=== PATIENT | female | born 1975 | race Caucasian/White ===

== ENCOUNTER 2020-05-06 18:16 | Inpatient (IN) | payer BC, OTHER ==
[~2020-05-06] VITALS: Ht 160 cm; Wt 82.5 kg
[2020-05-06] MEDS ORDERED: diphenhydrAMINE 50 MG/ML INJ (BENADRYL) IM STA (18:29)
[2020-05-06] MEDS ORDERED: meTOprolol 5 MG/5 ML (LOPRESSOR) VIAL IV ONE (18:30)
[2020-05-06] MEDS ORDERED: KETOROLAC 60 MG/2 ML VIAL IV ONE (18:30)
--- NOTE | 2020-05-06 18:35 | ED General ---
General Stated Complaint: MIGRIANE,NAUSEA,VOMITING Source of Information: Patient, Old Records, RN/, RN Notes Reviewed History of Present Illness Date Seen by Provider: May 06, 2020 Time Seen by Provider: 18:25 Initial Comments This patient is a 44-year-old female presents to the emergency department with severe headache. Patient states started about 2:00 this afternoon. Patient does have a history of hypertension blood pressure upon arrival 177/94. Patient states she does tickle Mirella for the same. Patient states she does have Hue's hypothyroidism. And takes Synthroid for the same. We'll do medical evaluation treatment is needed Timing/Duration: 4-6 Hours Severity: Moderate Associated Systoms: Denies Symptoms Allergies and Home Medications Allergies Coded Allergies: No Known Drug Allergies (Unverified , 05/06/20) Patient Home Medication List Home Medication List Reviewed: Yes Review of Systems Review of Systems Constitutional: No no symptoms reported, No see HPI, No chills, No diaphoresis, No dizziness, No fever, No malaise, No weakness, No weight gain, No weight loss, No other EENTM: No see HPI, No no symptoms reported, No ear discharge, No hearing loss, No ear pain, No blurred vision, No double vision, No eye pain, No tearing, No vision loss, No dental problems, No hoarseness, No mouth pain, No mouth swelling, No epistaxis, No nose congestion, No nose pain, No throat pain, No throat swelling, No other Respiratory: No no symptoms reported, No see HPI, No cough, No dyspnea on exertion, No hemoptysis, No orthopnea, No phlegm, No short of breath, No stridor, No wheezing, No other Cardiovascular: No no symptoms reported, No see HPI, No chest pain, No edema, No Hx of Intervention, No palpitations, No syncope, No vascular heart diseas, No other Gastrointestinal: No RUQ, No LUQ, No RLQ, No LLQ, No no symptoms reported, No see HPI, No abdominal pain, No constipation, No diarrhea, No dysphagia, No hematemesis, No heartburn, No jaundice, No loss of appetite, No melena, No nausea, No vomiting, No other Musculoskeletal: No no symptoms reported, No see HPI, No back pain, No gout, No joint pain, No joint swelling, No muscle pain, No muscle stiffness, No muscle cramps, No muscle twitching, No muscle weakness, No neck pain, No other Psychiatric/Neurological: Denies No Symptoms Reported; See HPI; Denies Anxiety, Denies Depressed, Denies Emotional Problems; Headache; Denies Numbness, Denies Paresthesia, Denies Pre-Existing Deficit, Denies Seizure, Denies Tingling, Denies Tremors, Denies Weakness, Denies Other All Other Systems Reviewed Negative Unless Noted: Yes Past Zxgoddx-Uyfptx-Vdhflo Hx Patient Social History Recent Foreign Travel: No Contact w/Someone Who Travel: No Physical Exam Vital Signs Vital Signs - First Documented 05/06/20 18:16 Temp 35.9 Pulse 84 Resp 18 B/P (MAP) 187/101 (129) Pulse Ox 99 O2 Delivery Room Air Capillary Refill : Height, Weight, BMI Height: '" Weight: lbs. oz. kg; BMI Method: General Appearance: No Apparent Distress, WD/WN HEENT: PERRL/EOMI, TMs Normal, Normal ENT Inspection, Pharynx Normal Respiratory: Chest Non Tender, Lungs Clear, Normal Breath Sounds, No Accessory Muscle Use, No Respiratory Distress Cardiovascular: Regular Rate, Rhythm, No Edema, No Gallop, No JVD, No Murmur, Normal Peripheral Pulses Gastrointestinal: Normal Bowel Sounds, No Organomegaly, No Pulsatile Mass, Non Tender, Soft Neurologic/Psychiatric: Alert, Oriented x3, No Motor/Sensory Deficits, Normal Mood/Affect Skin: Normal Color, Warm/Dry Progress/Results/Core Measures Suspected Sepsis SIRS Temperature: Pulse: Respiratory Rate: Laboratory Tests 05/06/20 18:36: White Blood Count 9.3 Blood Pressure / Mean: Laboratory Tests 05/06/20 18:36: Creatinine 0.62, Platelet Count 283, Total Bilirubin 0.3 Results/Orders Lab Results Laboratory Tests Test 05/06/20 18:36 Range/Units White Blood Count 9.3 4.3-11.0 10^3/uL Red Blood Count 4.41 4.35-5.85 10^6/uL Hemoglobin 15.4 11.5-16.0 G/DL Hematocrit 44 35-52 % Mean Corpuscular Volume 100 H 80-99 FL Mean Corpuscular Hemoglobin 35 H 25-34 PG Mean Corpuscular Hemoglobin Concent 35 32-36 G/DL Red Cell Distribution Width 13.2 10.0-14.5 % Platelet Count 283 130-400 10^3/uL Mean Platelet Volume 9.7 7.4-10.4 FL Immature Granulocyte % (Auto) 0 % Neutrophils (%) (Auto) 79 H 42-75 % Lymphocytes (%) (Auto) 15 12-44 % Monocytes (%) (Auto) 5 0-12 % Eosinophils (%) (Auto) 0 0-10 % Basophils (%) (Auto) 0 0-10 % Neutrophils # (Auto) 7.4 1.8-7.8 X 10^3 Lymphocytes # (Auto) 1.4 1.0-4.0 X 10^3 Monocytes # (Auto) 0.4 0.0-1.0 X 10^3 Eosinophils # (Auto) 0.0 0.0-0.3 10^3/uL Basophils # (Auto) 0.0 0.0-0.1 10^3/uL Immature Granulocyte # (Auto) 0.0 0.0-0.1 10^3/uL Sodium Level 143 135-145 MMOL/L Potassium Level 3.2 L 3.6-5.0 MMOL/L Chloride Level 103 98-107 MMOL/L Carbon Dioxide Level 23 21-32 MMOL/L Anion Gap 17 H 5-14 MMOL/L Blood Urea Nitrogen 7 7-18 MG/DL Creatinine 0.62 0.60-1.30 MG/DL Estimat Glomerular Filtration Rate > 60 BUN/Creatinine Ratio 11 Glucose Level 146 H 70-105 MG/DL Calcium Level 9.2 8.5-10.1 MG/DL Corrected Calcium 8.8 8.5-10.1 MG/DL Total Bilirubin 0.3 0.1-1.0 MG/DL Aspartate Amino Transf (AST/SGOT) 66 H 5-34 U/L Alanine Aminotransferase (ALT/SGPT) 61 H 0-55 U/L Alkaline Phosphatase 90 40-136 U/L Total Protein 7.6 6.4-8.2 GM/DL Albumin 4.5 3.2-4.5 GM/DL My Orders Orders - CARMELA ABEL MD Cbc With Automated Diff (05/06/20 18:29) Comprehensive Metabolic Panel (05/06/20 18:29) Ed Iv/Invasive Line Start (05/06/20 18:29) Ct Head Wo (05/06/20 18:29) Metoprolol Tartrate Injection (Lopressor (05/06/20 18:30) Ketorolac Injection (Toradol Injection) (05/06/20 18:30) Diphenhydramine Injection (Benadryl Inje (05/06/20 18:29) Ketorolac Injection (Toradol Injection) (05/06/20 18:36) Medications Given in ED Current Medications Medications Dose Ordered Sig/Meghana Route Start Time Stop Time Status Last Admin Dose Admin Ketorolac Tromethamine 15 mg STK-MED ONCE .ROUTE 05/06/20 18:36 05/06/20 18:37 DC 05/06/20 19:05 15 MG Metoprolol Tartrate 5 mg ONCE ONCE IV 05/06/20 18:30 05/06/20 18:33 DC 05/06/20 19:06 5 MG Vital Signs/I&O 05/06/20 18:16 Temp 35.9 Pulse 84 Resp 18 B/P (MAP) 187/101 (129) Pulse Ox 99 O2 Delivery Room Air Capillary Refill : Progress Note : Time: 19:41 Progress Note Patient blood pressure continues to improve blood pressure 151/71. p64 . Patient be discharged home. Take medications as prescribed. May use Tylenol Motrin when necessary is needed. Given a cool dark place and try to see get some sleep. Follow-up with your PCP in 2-3 days. Departure Impression Primary Impression: Headache Additional Impression: Hypertension Disposition: 01 HOME, SELF-CARE Condition: Stable Departure-Patient Inst. Decision time for Depature: 19:43 Referrals: CASTILLO POWER MD (PCP/Family) Primary Care Physician Patient Instructions: High Blood Pressure (DC), Headache, Adult (DC) Add. Discharge Instructions: Take medications as prescribed. May use Tylenol Motrin when necessary is needed. Given a cool dark place and try to see get some sleep. Follow-up with your PCP in 2-3 days. Scripts Rizatriptan Benzoate (Maxalt) 10 Mg Tablet 10 MG PO DAILY PRN for 7 Days, #10 TAB 0 Refills Prov: CARMELA ABEL MD 05/06/20 CARMELA ABEL MD May 06, 2020 18:34
[2020-05-06] MEDS ORDERED: KETOROLAC 15 MG/ML VIAL ONE (18:36)
[2020-05-06 18:41] LABS: BASOPHILS % (AUTO) 0 % (0-10); EOSINOPHILS % (AUTO) 0 % (0-10); HEMATOCRIT 44 % (35-52); HEMOGLOBIN 15.4 G/DL (11.5-16.0); LYMPHOCYTES # (AUTO) 1.4 X 10^3 (1.0-4.0); LYMPHOCYTES % (AUTO) 15 % (12-44); MEAN CORPUSCULAR HEMOGLOBIN 35 PG (25-34); MEAN CORPUSCULAR HGB CONC 35 G/DL (32-36); MEAN CORPUSCULAR VOLUME 100 FL (80-99); MEAN PLATELET VOLUME 9.7 FL (7.4-10.4); MONOCYTES # (AUTO) 0.4 X 10^3 (0.0-1.0); MONOCYTES % (AUTO) 5 % (0-12); NEUTROPHILS # (AUTO) 7.4 X 10^3 (1.8-7.8); NEUTROPHILS % (AUTO) 79 % (42-75); PLATELET COUNT 283 10^3/uL (130-400); WHITE BLOOD COUNT 9.3 10^3/uL (4.3-11.0)
--- NOTE | 2020-05-06 18:55 | Diagnostic Imaging Report ---
PROCEDURE: CT head without contrast. TECHNIQUE: Multiple contiguous axial images were obtained through the brain without the use of intravenous contrast. Auto Exposure Controls were utilized during the CT exam to meet ALARA standards for radiation dose reduction. INDICATION: Headache x5 days The ventricles are normal in size, shape and position. There are no masses or hemorrhages. There are no extra-axial fluid collections. IMPRESSION: Negative CT head Dictated by: Dictated on workstation # [id number]
[2020-05-06 19:01] LABS: ALANINE AMINOTRANSFERASE 61 U/L (0-55); ALBUMIN 4.5 GM/DL (3.2-4.5); ALKALINE PHOSPHATASE 90 U/L (40-136); BILIRUBIN,TOTAL 0.3 MG/DL (0.1-1.0); BUN/CREATININE RATIO 11; CALCIUM 9.2 MG/DL (8.5-10.1); CARBON DIOXIDE 23 MMOL/L (21-32); CHLORIDE 103 MMOL/L (98-107); CREATININE SERUM 0.62 MG/DL (0.60-1.30); GFR ESTIMATED > 60; GLUCOSE 146 MG/DL (70-105); POTASSIUM 3.2 MMOL/L (3.6-5.0); SODIUM 143 MMOL/L (135-145); TOTAL PROTEIN 7.6 GM/DL (6.4-8.2)
--- NOTE | 2020-05-06 19:04 | NUR ---
Pt report from [facility].
--- NOTE | 2020-05-06 19:40 | NUR ---
Spoke with Gaudencio Rojas and updated her progress.
[2020-05-06] MEDS ORDERED: RIZA10TA23 PO (19:44)
[2020-05-06] MEDS ORDERED: LORazepam INJ 2 MG/ML (ATIVAN) VIAL ONE (19:48)
[2020-05-06] MEDS ORDERED: LORazepam INJ 2 MG/ML (ATIVAN) VIAL IVP ONE (20:00)
[2020-05-06 20:25] LABS: BACTERIA,URINE NEGATIVE /HPF; BILIRUBIN,URINE NEGATIVE (NEGATIVE); CLARITY,URINE CLEAR; COLOR,URINE YELLOW; GLUCOSE, URINE (UA) TRACE (NEGATIVE); KETONES,URINE 1+ (NEGATIVE); LEUKOCYTE ESTERASE ,URINE NEGATIVE (NEGATIVE); NITRITE,URINE NEGATIVE (NEGATIVE); PH,URINE 6.5 (5-9); PROTEIN,URINE 2+ (NEGATIVE); SQUAMOUS EPITHELIAL CELL,UR RARE /HPF
[2020-05-06 20:30] LABS: AMPHETAMINE SCREEN, URINE NEGATIVE (NEGATIVE); BARBITURATE SCREEN URINE NEGATIVE (NEGATIVE); BENZODIAZEPINES SCREEN URINE POSITIVE (NEGATIVE); CANNABINOID SCREEN, URINE NEGATIVE (NEGATIVE); COCAINE SCREEN URINE NEGATIVE (NEGATIVE); METHADONE STAT NEGATIVE (NEGATIVE); METHAMPHETAMINE SCREEN URINE S NEGATIVE (NEGATIVE); OPIATE SCREEN URINE NEGATIVE (NEGATIVE); OXYCODONE STAT NEGATIVE (NEGATIVE); PROPOXYPHENE STAT NEGATIVE (NEGATIVE); TRICYCLIC ANTIDEPRESSANTS SCRE NEGATIVE (NEGATIVE)
--- NOTE | 2020-05-06 21:10 | NUR ---
Report to [facility]. Pt going to ICU 11.
[2020-05-06] MEDS ORDERED: morphine INJ 4 MG/ML 1 ML (VIAL/SYRINGE) ONE (23:06)
[2020-05-06] MEDS ORDERED: morphine INJ 4 MG/ML 1 ML (VIAL/SYRINGE) IVP PRN (23:15)
[2020-05-06] MEDS ORDERED: CATHETER FLUSH 10 ML SYR IV PRN (23:15)
[2020-05-06] MEDS ORDERED: D5 NS 1000 ML IV SOLUTION 0 ML IV ONE (23:33)
[2020-05-06] MEDS ORDERED: NS IV 1000 ML 1,000 ML ONE (23:38)
[2020-05-06] MEDS: NS IV 1000 ML 1,000 ML IV SCH (23:43)
[2020-05-06] MEDS ORDERED: KCL 20 MEQ TAB (K-DUR) PO ONE (23:45)
[2020-05-06] MEDS ORDERED: D5 NS 1000 ML IV SOLUTION 1,000 ML IV SCH ×2 (23:45)
[2020-05-07] MEDS ORDERED: morphine INJ 4 MG/ML 1 ML (VIAL/SYRINGE) ONE (00:35)
[2020-05-07] MEDS: morphine INJ 4 MG/ML 1 ML (VIAL/SYRINGE) IVP PRN ×5 (00:42→22:25)
[2020-05-07] MEDS: POTASSIUM CL 10MEQ/50ML IVPB 50 ML IV SCH ×8 (00:50→17:05)
[2020-05-07] MEDS ORDERED: morphine INJ 4 MG/ML 1 ML (VIAL/SYRINGE) IVP PRN ×2 (01:15)
[2020-05-07 01:22] LABS: BASOPHILS % (AUTO) 0 % (0-10); EOSINOPHILS % (AUTO) 0 % (0-10); HEMATOCRIT 44 % (35-52); HEMOGLOBIN 14.9 g/dL (11.5-16.0); LYMPHOCYTES # (AUTO) 1.9 10^3/uL (1.0-4.0); LYMPHOCYTES % (AUTO) 18 % (12-44); MEAN CORPUSCULAR HEMOGLOBIN 34 pg (25-34); MEAN CORPUSCULAR HGB CONC 34 g/dL (32-36); MEAN CORPUSCULAR VOLUME 100 fL (80-99); MONOCYTES # (AUTO) 0.7 10^3/uL (0.0-1.0); MONOCYTES % (AUTO) 7 % (0-12); NEUTROPHILS # (AUTO) 7.6 10^3/uL (1.8-7.8); NEUTROPHILS % (AUTO) 74 % (42-75); PLATELET COUNT 294 10^3/uL (130-400); WHITE BLOOD COUNT 10.3 10^3/uL (4.3-11.0)
[2020-05-07 01:27] LABS: CHLORIDE 103 MMOL/L (98-107); POTASSIUM 3.3 MMOL/L (3.6-5.0); SODIUM 140 MMOL/L (135-145)
[2020-05-07 01:29] LABS: GLUCOSE 121 MG/DL (70-105)
[2020-05-07 01:30] LABS: CARBON DIOXIDE 22 MMOL/L (21-32)
[2020-05-07 01:32] LABS: CREATININE SERUM 0.66 MG/DL (0.60-1.30); GFR ESTIMATED > 60; PHOSPHORUS 2.9 MG/DL (2.3-4.7)
[2020-05-07 01:33] LABS: BUN/CREATININE RATIO 9
[2020-05-07 01:35] LABS: MAGNESIUM 2.1 MG/DL (1.6-2.4)
[2020-05-07] MEDS ORDERED: ACETAMINOPHEN 500 MG TAB (TYLENOL) ONE (02:18)
[2020-05-07] MEDS: KETOROLAC 30 MG/ML VIAL IVP PRN ×4 (02:45→20:39)
[2020-05-07] MEDS: PROMETHAZINE INJ 25 MG/ML (PHENERGAN) AMP IM PRN ×4 (02:45→20:39)
--- NOTE | 2020-05-07 04:41 | Pulmonary Consultation ---
History of Present Illness History of Present Illness Date Seen by Provider: May 07, 2020 Time Seen by Provider: 04:37 Date of Admission Allergies and Home Medications Allergies Coded Allergies: No Known Drug Allergies (Unverified , 05/06/20) Home Medications Rizatriptan Benzoate 10 Mg Tablet, 10 MG PO DAILY PRN Prescribed by: CARMELA ABEL on 05/06/201943 Past Cxxxede-Vayakp-Gnexas Hx Patient Social History Alcohol Use: Occasionally Uses Recreational Drug Use: No Smoking Status: Current Everyday Smoker Type Used: Cigarettes 2nd Hand Smoke Exposure: Yes Recent Foreign Travel: No Contact w/Someone Who Travel: No Recent Infectious Disease Expo: No Physical Abuse: No Sexual Abuse: No Mistreated: No Fear: No Review of Systems Time Seen by Provider: 04:40 Sepsis Event Evaluation Height, Weight, BMI Height: '" Weight: lbs. oz. kg; 29.00 BMI Method: Exam Exam Vital Signs Date Time Temp Pulse Resp B/P (MAP) Pulse Ox O2 Delivery O2 Flow Rate FiO2 05/07/20 02:00 65 149/78 94 Room Air 05/07/20 01:00 64 168/93 97 Room Air 05/07/20 00:00 66 155/87 96 Room Air 05/07/20 00:00 37.3 05/06/20 23:45 59 152/98 98 Room Air 05/06/20 23:30 66 146/115 96 Room Air 05/06/20 23:15 83 152/88 97 Room Air 05/06/20 23:10 36.6 78 168/106 95 Room Air 05/06/20 22:59 73 170/110 99 Room Air 05/06/20 22:55 65 168/106 97 Room Air 05/06/20 20:30 88 157/83 95 Room Air 05/06/20 20:15 90 133/71 93 Room Air 05/06/20 19:30 63 182/84 99 Room Air 05/06/20 19:02 74 99 Room Air 05/06/20 18:16 35.9 84 18 187/101 (129) 99 Room Air I & O 05/07/20 07:00 Intake Total 100 ml Balance 100 ml Height & Weight Height: '" Weight: lbs. oz. kg; 29.00 BMI Method: General Appearance: No Apparent Distress, WD/WN HEENT: PERRL/EOMI, TMs Normal, Normal ENT Inspection, Pharynx Normal Respiratory: Chest Non Tender, Lungs Clear, Normal Breath Sounds, No Accessory Muscle Use, No Respiratory Distress Cardiovascular: Regular Rate, Rhythm, No Edema, No Gallop, No JVD, No Murmur, Normal Peripheral Pulses Capillary Refill: Less Than 3 Seconds Neurologic/Psychiatric: Alert, Oriented x3, No Motor/Sensory Deficits, Normal Mood/Affect Skin: Normal Color, Warm/Dry Results Lab Laboratory Tests 05/06/20 18:36 05/07/20 01:05 Assessment/Plan Assessment/Plan Severe SHEA -Check MRI of Brain -Consider lumbar puncture -Head CT without contrast is negative -No Fever, No leukocytosis -Check urine preg HTN LIBAN BOURGEOIS DO May 07, 2020 04:41
[2020-05-07] MEDS ORDERED: POTASSIUM CL 10MEQ/50ML IVPB 50 ML IV SCH (05:30)
[2020-05-07] MEDS ORDERED: FLU QUADRIvalent (3YOA+) 60 mcg/0.5 ml 2020-21 (AFLURIA) IM ONE (07:00)
--- NOTE | 2020-05-07 07:57 | NUR ---
TIMELINE NOTE BELOW: 05/06/20 @ 2253- THIS RN NOTIFIED EICU OF PATIENT'S EXTREME PAIN FROM MIGRAINE, NUCHAL RIGIDITY, HTN WITH SBP IN 170-180'S, AND PHOTOPHOBIA. NEW ORDER RECEIVED, SEE EMAR AND ORDER HISTORY. 05/06/20 @ 2311- HIS RN NOTIFIED EICU OF PATIENT'S EXTREME PAIN FROM MIGRAINE, NUCHAL RIGIDITY, HTN WITH SBP IN 170-180'S, AND PHOTOPHOBIA. NO NEW ORDERS AT THIS TIME. 05/06/20 @ 2330- THIS RN NOTIFIED EICU OF CONTINUED PAIN DESPITE ORDERED MORPHINE. NEW ORDERS RECEIVED AT THIS TIME, SEE EMAR AND ORDER HX. 05/07/20 @ 0022- THIS RN NOTIFIED EICU OF CONTINUED PAIN DESPITE ORDERED MORPHINE. NEW ORDERS RECEIVED AT THIS TIME, SEE EMAR AND ORDER HX. 05/07/20 @ 0200-THIS RN NOTIFIED EICU OF CONTINUED PAIN DESPITE ORDERED MORPHINE. NEW ORDER RECEIVED AT THIS FOR TYLENOL, SEE ORDER HX AND EMAR. 05/07/20 @ 0215-THIS RN NOTIFIED DR. DALE OF CONTINUED PAIN DESPITE ORDERED MORPHINE AND TYLENOL. NEW ORDERS RECEIVED AT THIS TIME, SEE EMAR AND ORDER HX.
--- NOTE | 2020-05-07 08:04 | Diagnostic Imaging Report ---
Post semi-erect AP chest at 3:43. Indication: Severe onset hypertension There are no prior studies available for comparison. The heart size is within normal limits. The lungs are clear. There is no evidence for failure, pneumonia or for pleural effusion. The mediastinum is not widened. The osseous structures are intact. Impression: There is no evidence for active disease. Dictated by: Dictated on workstation # [id number]
[2020-05-07 08:21] LABS: CHLORIDE 106 MMOL/L (98-107); POTASSIUM 3.6 MMOL/L (3.6-5.0); SODIUM 140 MMOL/L (135-145)
[2020-05-07 08:22] LABS: CALCIUM 8.4 MG/DL (8.5-10.1)
[2020-05-07 08:23] LABS: GLUCOSE 96 MG/DL (70-105)
[2020-05-07 08:25] LABS: CARBON DIOXIDE 24 MMOL/L (21-32)
[2020-05-07 08:27] LABS: CREATININE SERUM 0.69 MG/DL (0.60-1.30); GFR ESTIMATED > 60
[2020-05-07 08:28] LABS: BUN/CREATININE RATIO 9
--- NOTE | 2020-05-07 08:53 | Anesthesia-Procedure Note ---
Procedures/Interventions Procedure Start/Stop/Diagnosis Date of Procedure: May 07, 2020 Start Time: 08:00 Referring Physician: Cookie Preprocedural Diagnosis: new onset seizures Stop Time: 08:30 Lumbar Puncture Discussed Risk,Benefits: Yes (consent signed ) Patient Consents: Yes Position: Lying, L4-5, Right Sterile Technique: Yes Opening Pressure: 19 Fluid Color: clear Spinal Needle Used: Other (25 Pencan) Procedure Notes Lumbar puncture performed by DEBORAH Hogan. Localized area with 1% Lidocaine 2mL at L4-5. X 1 attempt with CSF backflow. Opening pressure 19cm H2O. 4 vials collected with 2mL each, labeled and specimen given to ICU, RN. Pt tolerated well. NIDHI MCKEON CRNA May 07, 2020 08:53
[2020-05-07 09:17] LABS: CSF GLUCOSE 72 MG/DL (50-80)
[2020-05-07] MEDS: NS IV 1000 ML 1,000 ML IV SCH ×2 (09:18→20:38)
[2020-05-07 09:23] LABS: CSF TOTAL PROTEIN 41 MG/DL (15-40)
[2020-05-07 09:38] LABS: APPEARANCE,CSF CLEAR; COLOR,CSF COLORLESS; WHITE BLOOD CELL,CSF 1 CELLS (0-5)
[2020-05-07 09:39] LABS: RED BLOOD CELL,CSF 0 CELLS (0-0)
[2020-05-07 09:41] LABS: CSF TUBE NUMBER 4
[2020-05-07] MEDS ORDERED: GADOBUTROL 15 MMOL/15 ML (GADAVIST) VIAL IV ONE (11:45)
--- NOTE | 2020-05-07 12:10 | History & Physical-Hospitalist ---
History of Present Illness Date Seen 05/07/20 Time Seen by a Provider: 09:00 Attending Physician Katelynn Gary DO PCP Neo Nguyen MD Referring Physician Date of Admission May 06, 2020 at 22:52 Home Medications & Allergies Home Medications Reviewed patient Home Medication Reconciliation performed by pharmacy medication reconciliations flight data technician and/or nursing. Patients Allergies have been reviewed. Allergies Allergies Coded Allergies No Known Drug Allergies (Uzuqelwcda99/19/20) Past Ljazvtg-Suxsmj-Tmdziz Hx Patient Social History Alcohol Use: Occasionally Uses Recreational Drug Use: No Smoking Status: Current Everyday Smoker Type Used: Cigarettes 2nd Hand Smoke Exposure: Yes Recent Foreign Travel: No Contact w/other who traveled: No Recent Infectious Disease Expo: No Physical Exam Physical Exam Vital Signs Vital Signs - First Documented 05/06/20 18:16 Temp 35.9 Pulse 84 Resp 18 B/P (MAP) 187/101 (129) Pulse Ox 99 O2 Delivery Room Air Capillary Refill : Less Than 3 Seconds Height, Weight, BMI Height: '" Weight: lbs. oz. kg; 29.00 BMI Method: Results Results/Procedures Labs Laboratory Tests 05/06/20 18:36 05/07/20 01:05 05/07/20 07:50 05/08/20 03:10 05/08/20 03:16 Patient resulted labs reviewed. Assessment/Plan Admission Diagnosis Assessment: New onset seizure Migraines Plan: MRI Lumbar puncture Clinical Quality Measures DVT/VTE Risk/Contraindication: Risk Factor Score Per Nursin RFS Level Per Nursing on Admit: 2=Moderate Other: MRI THIS MORNING 05/07/20 WITH CONTRAST, WILL REASSESS PROPHYLACTIC DVT MEDICATION AT THIS TIME KATELYNN GARY DO May 07, 2020 12:10
--- NOTE | 2020-05-07 12:32 | History & Physical-Hospitalist ---
VILMA,RADHA MED STUDENT 05/07/20 1232: History of Present Illness HPI/Chief Complaint CC: Headache HPI: Celia Joiner is a 44-year-old female with hx of HTN, migraines and Hashimotos who presented to the ER with severe headache onset about 1400 yes terday (05/06/20). Patient states pain started suddenly after coughing while working at home. She subsequently tried laying down and taking her previously perscribed rizatriptan with no effect, prompting her arrival at the ER. Patient's BP on arrival was 177/94. She notes she had a previous episode a few days prior which was controlled with her triptan. On arrival, patient was given Lopressor and Toridol and sent for Head CT which was negative. Patient's pressure sortly after improved to 151/71, with no fever or leukocytosis noted she was discharged home to f/u outpatient. While discussing discharge instructions patient had seizure-like activity and was given 2 of Ativan, subsequently admitted for new-onset seizure like activity. Dr. Gabriel was consulted and recommends LP and MRI which are currently ordered. Patient is now laying in the dark in her room with reduced headache rated 4/10 compared to her initial 10+/10. She denies any other acute complaints including CP, tachycardia, SOB, wheezing, abdominal pain, diarrhea, constipation. She notes she had visual disturbances over the course of her current episode which is consistent with her previous episodes of ocular migraines though they have never been this bad and she hasn't had an episode since about 2014 (when she was perscribed her Rizatriptan). Patient sees a neurologist at where she had her last MRI in 2013. Source: patient, other (ED note) Exam Limitations: no limitations Date Seen 05/07/20 Time Seen by a Provider: 08:25 Attending Physician Katelynn Dale Pankaj K MD Referring Physician Date of Admission May 06, 2020 at 22:52 Home Medications & Allergies Home Medications Reviewed patient Home Medication Reconciliation performed by pharmacy medication reconciliations wireless cellular technician and/or nursing. Patients Allergies have been reviewed. 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[employer]) Alcohol Use: Occasionally Uses Recreational Drug Use: No Smoking Status: Current Everyday Smoker ("less than 1ppd") Type Used: Cigarettes 2nd Hand Smoke Exposure: Yes Recent Foreign Travel: No Contact w/other who traveled: No Recent Infectious Disease Expo: No Past Medical History Cardiac: Hypertension Neurological: Headaches /Migraines Gastrointestinal: Diverticulosis Endocrine: Hypothyroidsim (hashimotos thyroiditis) Review of Systems Constitutional: No chills, No fever EENTM: blurred vision (visual disturbances during epsiode, currently resolved); No hearing loss Respiratory: No dyspnea on exertion, No orthopnea Cardiovascular: No chest pain, No edema Gastrointestinal: No abdominal pain, No constipation, No diarrhea, No jaundice Genitourinary: No dysuria, No hematuria Musculoskeletal: No joint pain, No muscle pain Skin: No pruritus, No rash Psychiatric/Neurological: Denies Anxiety; Headache, Seizure (new onset, currently resolved) Physical Exam Physical Exam Vital Signs Vital Signs - First Documented 05/06/20 18:16 Temp 35.9 Pulse 84 Resp 18 B/P (MAP) 187/101 (129) Pulse Ox 99 O2 Delivery Room Air Capillary Refill : Less Than 3 Seconds Height, Weight, BMI Height: '" Weight: lbs. oz. kg; 29.00 BMI Method: General Appearance: WD/WN, Mild Distress HEENT: Photophobia Neck: Normal Inspection, Non Tender Respiratory: Chest Non Tender, Lungs Clear, No Accessory Muscle Use, No Respiratory Distress Cardiovascular: Regular Rate, Rhythm, No Edema, No Murmur, Normal Peripheral Pulses Gastrointestinal: No Organomegaly, No Pulsatile Mass, Non Tender Extremity: Normal Capillary Refill, Normal Inspection, No Calf Tenderness, No Pedal Edema Neurologic/Psychiatric: Alert, Oriented x3, Normal Mood/Affect Skin: Normal Color; No Ecchymosis, No Jaundice, No Petechia, No Rash Results Results/Procedures Labs Laboratory Tests 05/06/20 18:36 05/07/20 01:05 05/07/20 07:50 Patient resulted labs reviewed. Assessment/Plan Admission Diagnosis New onset seizure -MRI -Lumbar puncture Chronic migraines ~continue home medication as needed Clinical Quality Measures DVT/VTE Risk/Contraindication: Risk Factor Score Per Nursin RFS Level Per Nursing on Admit: 2=Moderate Other: MRI THIS MORNING 05/07/20 WITH CONTRAST, WILL REASSESS PROPHYLACTIC DVT MEDICATION AT THIS TIME KATELYNN DALE DO 05/08/20 0616: History of Present Illness HPI/Chief Complaint CC: New onset seizure after a migraine HPI: This is a 44yoWF clinic pt of Dr. Nguyen who presented to [facility] with a severe migraine with a history of migraines and upon DC planning she had a new onset seizure. She was admitted, CT scan was normal, labs normal, UDS negative, and pt did have a lumbar puncture and all of that was within normal limits. MRI will be scheduled today. 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[employer]) Smoking Status: Current Everyday Smoker ("less than 1ppd") Review of Systems Constitutional: see HPI Physical Exam Physical Exam General Appearance: No Apparent Distress, Chronically ill Respiratory: Lungs Clear Cardiovascular: Regular Rate, Rhythm Assessment/Plan Admission Diagnosis ICU LP MRI Monitor closely Admission Status: Inpatient Order (span 2 midnights) Reason for Inpatient Admission: new onset seziure Supervisory-Addendum Brief Verification & Attestation Participated in pt care: history, MDM, physical Personally performed: exam, history, MDM, supervision of care Care discussed with: Medical Student Procedures: n/a Results interpretation: Verified all documentation Verification and Attestation of Medical Student E/M Service A medical student performed and documented this service in my presence. I reviewed and verified all information documented by the medical student and made modifications to such information, when appropriate. I personally performed the physical exam and medical decision making. Katelynn Dale, May 08, 2020,06:16 RADHA ESPARZA MED STUDENT May 07, 2020 12:32 KATELYNN DALE DO May 08, 2020 06:16
--- NOTE | 2020-05-07 12:44 | Diagnostic Imaging Report ---
EXAM: MRI BRAIN PITUITARY W/WO CON INDICATION: Migraine headache. COMPARISON: CT head without contrast 05/06/2020. FINDINGS: Examination is limited by motion. There is subtle cortical T2 hyperintensity in the posterior parasagittal frontal lobes and parasagittal parietal lobe. No associated enhancement or restricted water diffusion. No signal to suggest intracranial hemorrhage. Dedicated sequences to the level of the sella demonstrate normal morphology with no suspicious mass or enhancement. The infundibulum is midline. Normal morphology of the major midline structures, posterior fossa and cerebellar pontine angle. No hydrocephalus or extra-axial fluid collections. Normal intracranial flow voids. The orbits are unremarkable. The paranasal sinuses and mastoids are clear. Normal bone marrow signal. IMPRESSION: 1. Examination limited by motion, particularly affecting the dedicated sella sequences. 2. Normal morphology of the sella with no suspicious mass or enhancement. 3. Subtle cortical T2 hyperintensity within the parasagittal parietal lobes and posterior frontal lobes is indeterminate. There is no associated enhancement or restricted water diffusion. No evidence of intracranial hemorrhage. Findings could include encephalitis including infectious or autoimmune. Posterior reversal encephalopathy syndrome typically involves the subcortical white matter as well but could have this presentation. Vasculitis could have a similar presentation. Status epilepticus and hypoglycemia could also be considered. Findings were discussed with Dr. Berhane Gabriel at 12:38 p.m. on 05/07/2020. Dictated by: Dictated on workstation # [id number]
[2020-05-07] MEDS: ACETAMINOPHEN 500 MG TAB (TYLENOL) PO PRN (13:30)
[2020-05-07] MEDS: ACYCLOVIR INJECTION 800 MG in NS (IVPB) 250 ML IV SCH ×2 (14:38→22:19)
[2020-05-07] MEDS ORDERED: ALPR0.5T7 PO (15:43)
[2020-05-07] MEDS ORDERED: PANT40TA52 PO (15:43)
[2020-05-07] MEDS ORDERED: IBUP-2473 PO (15:43)
[2020-05-07] MEDS ORDERED: ACET-2267 PO (15:43)
[2020-05-07] MEDS ORDERED: ESTR42.511 VG (15:43)
[2020-05-07] MEDS ORDERED: LOSA50TA63 PO (15:43)
[2020-05-07] MEDS ORDERED: MAGN296S71 PO (15:43)
[2020-05-07] MEDS ORDERED: VENL75CA93 PO (15:43)
[2020-05-07] MEDS ORDERED: LEVO75TA6 PO (15:43)
--- NOTE | 2020-05-07 15:46 | NUR ---
SPOKE WITH THE PT ( I CALLED HER ROOM PHONE), WENT THRU THE EXT MED HISTORY AND CALLED [facility] TO COMPLETE THE MED REC PT THOUGHT SHE HAD FILLED A MIGRAINE MEDICATIONS (IMITREX, MAXALT) AT [facility], HOWEVER WHEN I SPOKE TO A DENTURE PACKER AT [facility] I WAS TOLD THERE WERE NO MIGRAINE MEDICATIONS ON FILE OTC MEDS: IBUPROFEN TYLENOL
[2020-05-08] MEDS: NS IV 1000 ML 1,000 ML IV SCH ×2 (02:18→13:28)
[2020-05-08 03:58] LABS: BASOPHILS % (AUTO) 0 % (0-10); EOSINOPHILS # (AUTO) 0.2 10^3/uL (0.0-0.3); EOSINOPHILS % (AUTO) 3 % (0-10); HEMATOCRIT 37 % (35-52); HEMOGLOBIN 12.3 g/dL (11.5-16.0); LYMPHOCYTES # (AUTO) 2.3 10^3/uL (1.0-4.0); LYMPHOCYTES % (AUTO) 31 % (12-44); MEAN CORPUSCULAR HEMOGLOBIN 35 pg (25-34); MEAN CORPUSCULAR HGB CONC 33 g/dL (32-36); MEAN CORPUSCULAR VOLUME 105 fL (80-99); MEAN PLATELET VOLUME 10.6 fL (9.0-12.2); MONOCYTES # (AUTO) 0.4 10^3/uL (0.0-1.0); MONOCYTES % (AUTO) 6 % (0-12); NEUTROPHILS # (AUTO) 4.5 10^3/uL (1.8-7.8); NEUTROPHILS % (AUTO) 61 % (42-75); PLATELET COUNT 233 10^3/uL (130-400); WHITE BLOOD COUNT 7.4 10^3/uL (4.3-11.0)
[2020-05-08 04:09] LABS: CHLORIDE 110 MMOL/L (98-107); POTASSIUM 3.5 MMOL/L (3.6-5.0); SODIUM 140 MMOL/L (135-145)
[2020-05-08 04:10] LABS: CALCIUM 7.7 MG/DL (8.5-10.1)
[2020-05-08 04:11] LABS: GLUCOSE 111 MG/DL (70-105)
[2020-05-08 04:12] LABS: CARBON DIOXIDE 20 MMOL/L (21-32)
[2020-05-08 04:14] LABS: PHOSPHORUS 2.9 MG/DL (2.3-4.7)
[2020-05-08 04:15] LABS: CREATININE SERUM 0.74 MG/DL (0.60-1.30); GFR ESTIMATED > 60
[2020-05-08 04:16] LABS: BUN/CREATININE RATIO 12
[2020-05-08 04:17] LABS: MAGNESIUM 1.9 MG/DL (1.6-2.4)
[2020-05-08] MEDS: ACETAMINOPHEN 500 MG TAB (TYLENOL) PO PRN ×2 (04:43→15:55)
[2020-05-08] MEDS: ACYCLOVIR INJECTION 800 MG in NS (IVPB) 250 ML IV SCH ×3 (05:15→22:40)
--- NOTE | 2020-05-08 06:49 | Pulmonary Progress Note ---
Subjective Time Seen by a Provider: 06:43 Subjective/Events-last exam Pt still has SHEA . No seizures through the night. Sepsis Event Evaluation Height, Weight, BMI Height: '" Weight: lbs. oz. kg; 29.00 BMI Method: Exam Exam Vital Signs Date Time Temp Pulse Resp B/P (MAP) Pulse Ox O2 Delivery O2 Flow Rate FiO2 05/08/20 05:00 65 146/98 95 Room Air 05/08/20 04:00 97 Room Air 05/08/20 04:00 36.2 05/08/20 04:00 63 157/90 95 Room Air 05/08/20 03:00 62 138/85 97 Room Air 05/08/20 02:00 72 131/79 94 Room Air 05/08/20 01:00 65 05/08/20 01:00 65 110/74 96 Room Air 05/08/20 00:00 36.6 05/08/20 00:00 81 109/60 95 Room Air 05/08/20 00:00 97 Room Air 05/07/20 23:00 73 130/79 94 Room Air 05/07/20 22:00 74 129/80 95 Room Air 05/07/20 21:00 75 129/79 95 Room Air 05/07/20 20:00 95 Room Air 05/07/20 20:00 75 137/79 94 Room Air 05/07/20 20:00 36.2 05/07/20 19:23 36.7 05/07/20 19:00 84 127/74 94 Room Air 05/07/20 19:00 84 05/07/20 16:00 37.5 05/07/20 16:00 96 Room Air 05/07/20 13:00 96 96 Room Air 05/07/20 12:49 63 05/07/20 12:00 97 Room Air 05/07/20 10:00 146/89 93 Room Air 05/07/20 09:00 68 140/77 93 Room Air 05/07/20 08:00 67 133/98 97 Room Air 05/07/20 07:45 96 Room Air 05/07/20 07:37 36.5 05/07/20 07:00 68 144/94 96 Room Air 05/07/20 06:48 67 I & O 05/08/20 07:00 Intake Total 2650 ml Output Total 1000 ml Balance 1650 ml Height & Weight Height: '" Weight: lbs. oz. kg; 29.00 BMI Method: General Appearance: No Apparent Distress, Chronically ill HEENT: Photophobia Neck: Normal Inspection, Non Tender Respiratory: Lungs Clear Cardiovascular: Regular Rate, Rhythm Capillary Refill: Less Than 3 Seconds Extremity: Normal Capillary Refill, Normal Inspection, No Calf Tenderness, No Pedal Edema Neurologic/Psychiatric: Alert, Oriented x3, Normal Mood/Affect Skin: Normal Color; No Ecchymosis, No Jaundice, No Petechia, No Rash Results Lab Laboratory Tests 05/06/20 18:36 05/07/20 01:05 05/07/20 07:50 05/08/20 03:10 05/08/20 03:16 Assessment/Plan Assessment/Plan Severe SHEA with new onset seizure. -s/p MRI of Brain -s/p lumbar puncture -Head CT without contrast is negative -No Fever, No leukocytosis -HSV abx - Pending -Tick panel pending HTN- stable Pt has been stable. Will transfer to 4th floor. LIBAN BOURGEOIS DO May 08, 2020 06:49
--- NOTE | 2020-05-08 07:31 | Diagnostic Imaging Report ---
INDICATION: Hypertension. Headache Upright chest shows normal heart size and vascularity. The lungs are clear. There is no effusion or pneumothorax. IMPRESSION: Normal chest with no change from 05/07/2020. Dictated by: Dictated on workstation # [id number]
[2020-05-08] MEDS: POTASSIUM CL 10MEQ/50ML IVPB 50 ML IV SCH ×4 (08:30→11:51)
[2020-05-08] MEDS: PROMETHAZINE INJ 25 MG/ML (PHENERGAN) AMP IM PRN (08:32)
[2020-05-08] MEDS: KETOROLAC 30 MG/ML VIAL IVP PRN ×2 (08:33→20:38)
--- NOTE | 2020-05-08 09:15 | NUR ---
REPORT RECEIVED FROM ASH FERREIRA RN
--- NOTE | 2020-05-08 09:36 | NUR ---
PT ARRIVED TO FLOOR, INTRODUCED TO CARE TEAM AND SURROUNDINGS. CALL LIGHT IN REACH, PT DENIES NEEDS AT THIS TIME, DOOR CLOSED WILL CONTINUE TO MONITOR
[2020-05-08] MEDS: LEVETIRACETAM INJECTION 500 MG in NS (IVPB) 100 ML IV SCH ×2 (12:33→20:38)
--- NOTE | 2020-05-08 13:23 | Progress Note - Hospitalist ---
RADHA ESPARZA MED STUDENT 05/08/20 1323: Subjective HPI/CC On Admission Date Seen by Provider: May 08, 2020 Time Seen by Provider: 08:05 ER note-CC: New onset seizure after a migraine HPI: This is a 44yoWF clinic pt of Dr. Nguyen who presented to [facility] ER with a severe migraine with a history of migraines and upon DC planning she had a new onset seizure. She was admitted, CT scan was normal, labs normal, UDS negative, and pt did have a lumbar puncture and all of that was within normal li mits. MRI will be scheduled today. Subjective/Events-last exam Patient reports no significant improvement of headache or neck pain but otherwise no complaints or changes. Denies any known seizures overnight. Objective Exam Vital Signs Vital Signs Date Time Temp Pulse Resp B/P (MAP) Pulse Ox O2 Delivery O2 Flow Rate FiO2 05/08/20 10:31 Room Air 05/08/20 09:37 36.1 71 145/89 97 05/06/20 18:16 18 Capillary Refill : Less Than 3 Seconds General Appearance: WD/WN, Mild Distress HEENT: Photophobia Neck: Normal Inspection; No Lymphadenopathy (L), No Lymphadenopathy (R); Tender Lateral (L side, stated to be chronic ) Respiratory: Chest Non Tender, Lungs Clear, Normal Breath Sounds, No Accessory Muscle Use, No Respiratory Distress Cardiovascular: Regular Rate, Rhythm, No Edema, No Murmur, Normal Peripheral Pulses Gastrointestinal: No Pulsatile Mass, Non Tender Extremity: Normal Inspection, Non Tender, No Calf Tenderness, No Pedal Edema Neurologic/Psychiatric: Alert, Oriented x3, Normal Mood/Affect Skin: Normal Color, Warm/Dry Results/Procedures Lab Laboratory Tests 05/08/20 03:10 05/08/20 03:16 Patient resulted labs reviewed. Assessment/Plan Assessment and Plan Assess & Plan/Chief Complaint New onset seizure/consider meningitis -improving -MRI: inconclusive -Lumbar puncture: negative culture -started on Acyclovir and Keppra Headache -continue home medication as needed Debility -consult PT/OT Chronic -HTN Clinical Quality Measures DVT/VTE Risk/Contraindication: Risk Factor Score Per Nursin RFS Level Per Nursing on Admit: 2=Moderate Other: MRI THIS MORNING 05/07/20 WITH CONTRAST, WILL REASSESS PROPHYLACTIC DVT MEDICATION AT THIS TIME KATELYNN DALE DO 05/08/202112: Subjective Subjective/Events-last exam No further seizures Keppra will be added 500 mg BID to lower the chance of a recurrent seizure Acyclovir maintained HSV on the CSF fluid, pending at this current time MRI was actually done at [facility] in [place] and not at as originally told, so I will try to log in there and get that done Will initiate PT to get her out of bed Tick-born illness panel pending Will work to get her home tomorrow Review of Systems General: Fatigue Neurological: Weakness Objective Exam General Appearance: No Apparent Distress, WD/WN, Chronically ill Respiratory: Chest Non Tender, Lungs Clear, Normal Breath Sounds, No Accessory Muscle Use, No Respiratory Distress Cardiovascular: Regular Rate, Rhythm, No Edema, No Gallop, No JVD, No Murmur, Normal Peripheral Pulses Neurologic/Psychiatric: Alert, Oriented x3, No Motor/Sensory Deficits, Normal Mood/Affect Assessment/Plan Assessment and Plan Assess & Plan/Chief Complaint Restart home meds and ordered PT OT to ambulate and started Keppra Supervisory-Addendum Brief Verification & Attestation Participated in pt care: history, MDM, physical Personally performed: exam, history, MDM, supervision of care Care discussed with: Medical Student Procedures: n/a Results interpretation: Verified all documentation Verification and Attestation of Medical Student E/M Service A medical student performed and documented this service in my presence. I reviewed and verified all information documented by the medical student and made modifications to such information, when appropriate. I personally performed the physical exam and medical decision making. Katelynn Dale, May 08, 2020,21:12 RADHA ESPARZA MED STUDENT May 08, 2020 13:23 KATELYNN DALE DO May 08, 2020 21:13
--- NOTE | 2020-05-08 13:51 | Physical Therapy Evaluation ---
PT Evaluation-General Medical Diagnosis Admission Date May 06, 2020 at 22:52 Medical Diagnosis: weakness Onset Date: May 06, 2020 Therapy Diagnosis Therapy Diagnosis: Debility Precautions Precautions/Isolations: Contact Isolation, Droplet Isolation, Seizure, Fall Prevention, Standard Precautions Weight Bear Status Full Weight Bearing Full Weight Bearing Referral Physician: Cookie Reason for Referral: Evaluation/Treatment Medical History Pertinent Medical History: Diverticulitis, HTN, Hypothroidism Additional Medical History Cardiac: Hypertension Neurological: Headaches /Migraines Gastrointestinal: Diverticulosis Endocrine: Hypothyroidsim (hashimotos thyroiditis) Reviewed History: Yes Social History Home: Single Level Current Living Status: Significant Other (+15yo daughter) Entry Into Home: Stairs Without Railing PT Steps Into Home: 2 PT Steps Inside Home: 0 Prior Prior Level of Function SCALE: Activities may be completed with or without assistive devices. 1-Mzwapvcwjn-lnthiss completes the activity by him/herself with no assistance from a helper. 5-Set-up or Clean-up Assistance-helper sets up or cleans up; patient completes activity. Lester assists only prior to or following the activity. 4-Supervision or Touching Assistance-helper provides verbal cues and/or touching/steadying and/or contact guard assistance as patient completes activity. Assistance may be provided throughout the activity or intermittently. 3-Partial/Moderate Assistance-helper does LESS THAN HALF the effort. Lester lifts, holds or supports trunk or limbs, but provides less than half the effort. 2-Substantial/Maximal Assistance-helper does MORE THAN HALF the effort. Lester lifts or holds trunk or limbs and provides more than half the effort. 7-Vcggteqnr-pbwfor does ALL the effort. Patient does none of the effort to complete the activity. Or, the assistance of 2 or more helpers is required for the patient to complete the activity. If activity was not attempted, code reason: 7-Patient Refused. 9-Not Applicable-not attempted and the patient did not perform the activity before the current illness, exacerbation or injury. 10-Not Attempted due to Environmental Limitations-(lack of equipment, weather restraints, etc.). 88-Not Attempted due to Medical Conditions or Safety Concerns. Bed Mobility: 6 Transfers (B,C,W/C): 6 Gait: 6 Stairs: 6 Wheelchair Mobility: 9 Indoor Mobility (Ambulation): Independent Stairs: Independent Prior Devices Use: None PT Evaluation-Current Subjective Pt presents laying supine in bed. Pt agrees to PT. Pt reports no pain but an "ache" in her body like she had been "hit by a bus"; ache is primarily in her neck and she states the poor mattress/pillow could be a contributing problem. Nurse states patient has been independent with mobility in her room. Pt/Family Goals Return home Objective Patient Orientation: Normal For Age ROM/Strength ROM Lower Extremities WFL Strength Lower Extremities R hip flex: 5/5 L hip flex: 4/5 with muscle spasm in thigh B knee flex/ext, and ankle df/pf: 5/5 Integumentary/Posture Bowel Incontinence: No Bladder Incontinence: No Neuromuscular (Tone, Coordination, Reflexes) No notable deficits in patient's tone or reflexes. No abnormalities in patients facial expressions (smile, frown, eye brows up), good tracking and peripheral vision, patient states her vision is a little blurry Sensory Vision: Wears Glasses (wear glasses when working on computer) Hearing: Functional Sensation Right Lower Extremit: Intact Sensation Left Lower Extremity: Intact Sensation Lower Extremities BLE sensation intact to light touch L2-S2 Transfers Roll Left to Right (QC): 6 Sit to Lying (QC): 6 Lying to Sitting/Side of Bed(Q: 6 Sit to Stand (QC): 6 Chair/Zgl-sd-Azfoo Xfer(QC): 6 Toilet Transfer (QC): 6 (Pt reports using restroom without assistance from nurses) Gait Does the Patient Walk?: Yes Mode of Locomotion: Walk Anticipated Mode of Locomotion: Walk Walk 10 feet (QC): 6 Gait Assistive Device: None Comments/Gait Description Pt walked approx 10' around bedside. Independent; pt ambulated slowly and tended to reach arm out for stability on counter, chair, etc, but did not experience LOB Wheelchair Training Does the Pt Use a Wheelchair?: No Balance Sitting Static: Normal Sitting Dynamic: Normal Standing Static: Normal Standing Dynamic: Normal Treatment Tandem stance x30s Unilateral stance on R x30s B LAQ, HR/TR x20 Sit to stands x10; pt did not use UE support Assessment/Needs Pt appears to be exhausted but notes no physical limitations. At conclusion of PT treatment pt is supervised ambulating to chair; pt requests maneuvering IV pole herself. Once in chair pt is given access to tray, call button, and all needs have been met. Rehab Potential: Good PT Plan Problem List Problem List: Activity Tolerance Treatment/Plan Treatment Plan: Discontinue PT Treatment Plan: Other Treatment Duration: May 08, 2020 Frequency: Patient and/or Family Agrees t: Yes Safety Risks/Education Patient Education: Gait Training, Transfer Techniques, Correct Positioning, Saf ety Issues Teaching Recipient: Patient Teaching Methods: Demonstration, Discussion Response to Teaching: Return Demonstration Discharge Recommendations Plan DC Therapy Discharge Recommendati: Home & Family Time/GCodes Time In: 1320 Time Out: 1341 Total Billed Treatment Time: 21 Total Billed Treatment 1 visit EVL 21' BEN MITCHELL PT May 08, 2020 13:51
--- NOTE | 2020-05-08 14:06 | Occupational Therapy Eval ---
OT Evaluation-General/PLF Medical Diagnosis Admission Date May 06, 2020 at 22:52 Medical Diagnosis: Seizure-like activity Onset Date: May 06, 2020 Therapy Diagnosis Therapy Diagnosis: Decreased ADL status Precautions Precautions/Isolations: Contact Isolation, Droplet Isolation, Seizure, Fall Prevention, Standard Precautions Referral Physician: Cookie Referral Reason: Activity Tolerance, Self Care, Evaluation/Treatment, Stren gthening/ROM Medical History Additional Medical History HTN, Hashimotos Current History severe headache and ER admission 05/06, upon time for d/c pt had seizure-like episode. Pt states inability to remember seizure. Reviewed History: Yes Social History Home: Single Level Current Living Status: Spouse (and daughter) ADL-Prior Level of Function SCALE: Activities may be completed with or without assistive devices. 4-Dvgswojiig-cnrwdbt completes the activity by him/herself with no assistance from a helper. 5-Set-up or Clean-up Assistance-helper sets up or cleans up; patient completes activity. Cameron assists only prior to or following the activity. 4-Supervision or Touching Assistance-helper provides verbal cues and/or touching/steadying and/or contact guard assistance as patient completes activity. Assistance may be provided throughout the activity or intermittently. 3-Partial/Moderate Assistance-helper does LESS THAN HALF the effort. Cameron lifts, holds or supports trunk or limbs, but provides less than half the effort. 2-Substantial/Maximal Assistance-helper does MORE THAN HALF the effort. Cameron lifts or holds trunk or limbs and provides more than half the effort. 0-Zuzqocmdw-wfkqit does ALL the effort. Patient does none of the effort to complete the activity. Or, the assistance of 2 or more helpers is required for the patient to complete the activity. If activity was not attempted, code reason: 7-Patient Refused. 9-Not Applicable-not attempted and the patient did not perform the activity before the current illness, exacerbation or injury. 10-Not Attempted due to Environmental Limitations-(lack of equipment, weather restraints, etc.). 88-Not Attempted due to Medical Conditions or Safety Concerns. ADL PLOF Comments Pt IND without use of AE. 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 Pt states pain in back of head/ cervical spine. Pt agrees to OT eval/ treat. Pt alert/ oriented. Pt in dark room Mental Status/Objective Patient Orientation: Person, Place, Situation, Normal For Age Attachments: IV Current Upper Extremity ROM WFL BUE Upper Extremity Coordination WFL BUE Upper Extremity Sensation WFL BUE Upper Extremity Strength WFL BUE ADL-Treatment Eating (QC): 6 Oral Hygiene (QC): 6 (pt completes in stance, c/o slight dizziness. SBA during all tasks, chair near by. Pt maintains stance and completes within 3 minutes.) Other Treatments Pt seen in recliner. Agrees to OT tx session, pt sit to stand with SBA, able to lift one LE and stabilize self to move item from pathway. Pt utilizes IV pole to reach sink to complete oral care as outlined above. Pt is IND at home, has had migraines most of life, though last week had a severe migraine and became nauseous. 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 Pt returns to chair, requests wash cloth for face. Pt handed cloth and able to wash face. Pt flexes neck forward to touch chest, pt states a "stretch" through cervical spine and bottom of cranium. Pt educated on no continued skilled OT tx sessions as pt is safe/ mobile. Pt educated to continue moving, call light in reach, all needs met. Education OT Patient Education: Progress toward Goal/Update tx plan, Safety issues Teaching Recipient: Patient Teaching Methods: Demonstration, Discussion Response to Teaching: Verbalize Understanding, Return Demonstration OT Shelter Goals Geomagnetist Goals 1=Demonstrate adherence to instructed precautions during ADL tasks. 2=Patient will verbalize/demonstrate understanding of assistive devices/modifications for ADL. 3=Patient will improve strength/tolerance for activity to enable patient to perform ADL's. OT Education/Plan Problem List/Assessment Assessment: No Skilled OT Needs ID'd Discharge Recommendations Plan/Recommendations: Discharge/Goals Met Therapy Discharge Recommendati: Home & Family Treatment Plan/Plan of Care Treatment,Training & Education: Yes Patient would benefit from OT for education, treatment and training to promote independence in ADL's, mobility, safety and/or upper extremity function for ADL's. Plan of Care: OTHER (eval only) Treatment Duration: May 08, 2020 Frequency: 1 time per week (eval and d/c.) Time/GCodes Start Time: 13:50 Stop Time: 13:57 Total Time Billed (hr/min): 7 Billed Treatment Time 1, CARLOS ballard/GERMAN Krause OTR May 08, 2020 14:06
[2020-05-08] MEDS ORDERED: ESTRADIOL VAGINAL CREAM 42.5 GM (ESTRACE) VG PRN (17:00)
[2020-05-08] MEDS: ACETAMINOPHEN 500 MG TAB (TYLENOL) PO SCH ×2 (17:12→23:00)
[2020-05-08] MEDS: ALPRAZolam 0.5 MG (XANAX) TAB PO PRN (20:37)
[2020-05-08] MEDS ORDERED: HYDROmorphone 2 MG/ML VIAL (DILAUDID) ONE (21:29)
[2020-05-08] MEDS ORDERED: LORazepam INJ 2 MG/ML (ATIVAN) VIAL ONE (21:30)
[2020-05-08] MEDS ORDERED: amLODIPine 5 MG (NORVASC) TAB PO ONE (21:30)
[2020-05-08] MEDS: HYDROmorphone 2 MG/ML VIAL (DILAUDID) IVP PRN (21:40)
[2020-05-08] MEDS: LORazepam INJ 2 MG/ML (ATIVAN) VIAL IVP PRN (21:40)
[2020-05-08] MEDS ORDERED: amLODIPine 5 MG (NORVASC) TAB ONE (21:42)
[2020-05-08] MEDS ORDERED: cloNIDine 0.1 MG (CATAPRES) TAB ONE (22:10)
[2020-05-08] MEDS: cloNIDine 0.1 MG (CATAPRES) TAB PO PRN (22:13)
--- NOTE | 2020-05-08 23:11 | NUR ---
At 2115, this nurse called Dr. Gary in regards to this pt yelling complaining of a throbbing headache, stating "my heads going to explode, please please help me, it hurts so bad, " and pt had visible leg and hand tremors. PT's vitals were taken at 2109 and BP was 231/101, HR 66, spo2 100%, RR- 25, temp 36.8, pain 10/10. Dr. Gary did not answer the first phone call, but then contacted me via Telephone, and put in orders for medications. I then gave clonidine .1 mg, amalodipine 5 mg, Ativan 0.125 mL, and Dilaudid 0.125 mL. said, "monitor only," so I will further continue to monitor, assess, and provide care as ordered.
[2020-05-09] MEDS: PROMETHAZINE INJ 25 MG/ML (PHENERGAN) AMP IM PRN (00:35)
[2020-05-09] MEDS: NS IV 1000 ML 1,000 ML IV SCH ×2 (01:04→07:52)
[2020-05-09] MEDS: HYDROmorphone 2 MG/ML VIAL (DILAUDID) IVP PRN ×2 (02:08→22:20)
[2020-05-09] MEDS: LORazepam INJ 2 MG/ML (ATIVAN) VIAL IVP PRN (02:08)
[2020-05-09] MEDS: cloNIDine 0.1 MG (CATAPRES) TAB PO PRN (03:46)
[2020-05-09 05:24] LABS: BASOPHILS # (AUTO) 0.1 10^3/uL (0.0-0.1); BASOPHILS % (AUTO) 1 % (0-10); EOSINOPHILS # (AUTO) 0.1 10^3/uL (0.0-0.3); EOSINOPHILS % (AUTO) 1 % (0-10); HEMATOCRIT 41 % (35-52); HEMOGLOBIN 13.7 g/dL (11.5-16.0); LYMPHOCYTES # (AUTO) 1.7 10^3/uL (1.0-4.0); LYMPHOCYTES % (AUTO) 19 % (12-44); MEAN CORPUSCULAR HEMOGLOBIN 34 pg (25-34); MEAN CORPUSCULAR HGB CONC 33 g/dL (32-36); MEAN CORPUSCULAR VOLUME 104 fL (80-99); MEAN PLATELET VOLUME 10.4 fL (9.0-12.2); MONOCYTES # (AUTO) 0.6 10^3/uL (0.0-1.0); MONOCYTES % (AUTO) 7 % (0-12); NEUTROPHILS # (AUTO) 6.6 10^3/uL (1.8-7.8); NEUTROPHILS % (AUTO) 72 % (42-75); PLATELET COUNT 233 10^3/uL (130-400); WHITE BLOOD COUNT 9.2 10^3/uL (4.3-11.0)
[2020-05-09] MEDS: ACYCLOVIR INJECTION 800 MG in NS (IVPB) 250 ML IV SCH (05:29)
[2020-05-09] MEDS: ACETAMINOPHEN 500 MG TAB (TYLENOL) PO SCH ×4 (05:30→20:17)
[2020-05-09] MEDS: LEVOTHYROXINE 75 MCG (LEVOTHROID) TABLET PO SCH (05:30)
[2020-05-09 05:56] LABS: BUN/CREATININE RATIO 8; CARBON DIOXIDE 19 MMOL/L (21-32); CHLORIDE 108 MMOL/L (98-107); CREATININE SERUM 0.74 MG/DL (0.60-1.30); GFR ESTIMATED > 60; GLUCOSE 127 MG/DL (70-105); SODIUM 140 MMOL/L (135-145)
[2020-05-09] MEDS: VENlafaxine XR 75 MG (EFFEXOR XR) CAP PO SCH (07:50)
[2020-05-09] MEDS: PANTOPRAZOLE 40 MG (PROTONIX) TAB PO SCH (07:51)
[2020-05-09] MEDS: LEVETIRACETAM INJECTION 500 MG in NS (IVPB) 100 ML IV SCH (07:51)
[2020-05-09] MEDS: ALPRAZolam 0.5 MG (XANAX) TAB PO PRN (07:51)
[2020-05-09] MEDS: LOSARTAN 50 MG (COZAAR) TAB PO SCH (07:52)
[2020-05-09] MEDS: amLODIPine 5 MG (NORVASC) TAB PO SCH (07:52)
[2020-05-09 12:00] VITALS: BP 130/73
[2020-05-09] MEDS: NICOTINE 21 MG (NICODERM) PATCH TD SCH (12:07)
[2020-05-09] MEDS: KETOROLAC 30 MG/ML VIAL IVP PRN (12:11)
--- NOTE | 2020-05-09 12:23 | Progress Note - Hospitalist ---
LYNETTE ESPARZAEW MED STUDENT 05/09/20 1223: Subjective HPI/CC On Admission Date Seen by Provider: May 09, 2020 Time Seen by Provider: 09:40 ER note-CC: New onset seizure after a migraine HPI: This is a 44yoWF clinic pt of Dr. Nguyen who presented to [facility] ER with a severe migraine with a history of migraines and upon DC planning she had a new onset seizure. She was admitted, CT scan was normal, labs normal, UDS negative, and pt did have a lumbar puncture and all of that was within normal li mits. MRI will be scheduled today. Subjective/Events-last exam Patient states her headache worsened in the early evening yesterday with a noted increase in blood pressure (taken this morning at 199/88) but is currently controlled (BP now 122/75). Other than her continued headache, she reports no new or worsening complaints, noting she was able to work with PT/OT without any significant issue. She has been able to walk around to use the restroom. Objective Exam Vital Signs Vital Signs Date Time Temp Pulse Resp B/P (MAP) Pulse Ox O2 Delivery O2 Flow Rate FiO2 05/09/20 08:00 36.5 82 18 122/75 97 Room Air Capillary Refill : Less Than 3 Seconds General Appearance: WD/WN, Mild Distress HEENT: Photophobia; No Scleral Icterus (L), No Scleral Icterus (R) Neck: Full Range of Motion, Normal Inspection, Non Tender Respiratory: Chest Non Tender, Lungs Clear, Normal Breath Sounds, No Accessory Muscle Use, No Respiratory Distress Cardiovascular: Regular Rate, Rhythm, No Murmur Gastrointestinal: No Organomegaly, No Pulsatile Mass, Non Tender, Soft Extremity: Normal Capillary Refill, Normal Inspection, Non Tender, No Calf Tenderness, No Pedal Edema Neurologic/Psychiatric: Alert, Oriented x3, Normal Mood/Affect Skin: Normal Color, Warm/Dry Results/Procedures Lab Laboratory Tests 05/09/20 04:40 Patient resulted labs reviewed. Assessment/Plan Assessment and Plan Assess & Plan/Chief Complaint New onset seizure/continued headache -MRI: inconclusive -Lumbar puncture: negative culture -continue Acyclovir and Keppra -consult [facility] neurology for management Debility -OT recommends no intervention HTN -continue home medication Clinical Quality Measures DVT/VTE Risk/Contraindication: Risk Factor Score Per Nursin RFS Level Per Nursing on Admit: 2=Moderate Other: MRI THIS MORNING 05/07/20 WITH CONTRAST, WILL REASSESS PROPHYLACTIC DVT MEDICATION AT THIS TIME KATELYNN DALE DO 05/09/202131: Subjective Subjective/Events-last exam Reached out to for transfer due to MRI compared from [address] Woodard evaluated it and found it to be very different Pt still has severe headache pain but otherwise doing okay Asking for a Nicotine Patch Very difficult to manage so will cloud up images on MRI and send data of lumbar puncture analysis Maintain on [facility] twice daily Review of Systems General: Fatigue, Malaise Objective Exam General Appearance: No Apparent Distress, WD/WN, Chronically ill Respiratory: Lungs Clear Cardiovascular: Regular Rate, Rhythm Assessment/Plan Assessment and Plan Assess & Plan/Chief Complaint BP control [facility] referral Diagnosis/Problems Diagnosis/Problems (1) Hypertension Status: Acute (2) Headache Status: Acute Supervisory-Addendum Brief Verification & Attestation Participated in pt care: history, MDM, physical Personally performed: exam, history, MDM, supervision of care Care discussed with: Medical Student Procedures: n/a Results interpretation: Verified all documentation Verification and Attestation of Medical Student E/M Service A medical student performed and documented this service in my presence. I reviewed and verified all information documented by the medical student and made modifications to such information, when appropriate. I personally performed the physical exam and medical decision making. Katelynn Dale, May 09, 2020,21:30 RADHA ESPARZA MED STUDENT May 09, 2020 12:23 KATELYNN DALE DO May 09, 2020 21:32
--- NOTE | 2020-05-09 13:48 | NUR ---
"RD ASSESSMENT PMHx: HTN; Hue's disease; diverticulosis; PT INTERACTION: Pt was awake and pleasant during nutrition assessment. Pt states current appetite is so-so and has been this way for some time. Note avg PO intake 69% x1d, per chart review. Pt states following a regular diet at home, and has no issues with chewing/swallowing food. Pt states some recent issues with nausea, but states it comes her headaches. Pt states some issues with diarrhea. Note last BM was 05/08, and pt not currently on bowel regimen per chart review. Pt states recent wt gain, but unsure of amount/timeframe. Pt attributes wt gain to working from home. Note unable to determine recent wt hx, per chart review. ABNORMAL NUTRITION-RELATED LAB VALUES LOW: BUN 6; HIGH: Cl 108; glu 127 Est. kcal needs: 1200 kcal | 15 kcal/kg Est. Pro needs: 64 g Pro | 0.8 g Pro/kg PES STATEMENT: Inadequate oral intake (NI-2.1) related to loss of appetite | nausea | diarrhea as evidenced by pt interview | avg PO intake 69% x1d INTERVENTION: Continue with current diet order of Regular diet. Pt may benefit from nutrition supplementation if PO intake declines. Will continue to follow and reassess as pt needs, intake, and status change. Lia Zimmerman, MS RD LD"
--- NOTE | 2020-05-09 15:57 | NUR ---
CM/SS: Visited wit pt as to plan for discharge and her current status Plan: Undetermined at this time. It is likely pt may transfer to - Pt does have an outpatient appointment set for Neurology at . Depending on the outcome of the possible transfer Summary: Pt reports having some issues on last night with her head hurting. She reports she is feeling tired and has slept some. Discuss that our services are limited here as to what we can do related to Neurology and that she may need to be transferred to for further treatment. She is ok with going to if that is necessary. Pt reports having family in [place] and would have someone to drive her to follow up appointments if needed. Pt thanks this worker for stopping by. This worker will follow up.
[2020-05-09 16:00] VITALS: BP 142/84
[2020-05-09 20:00] VITALS: BP 153/93
[2020-05-09] MEDS: LEVETIRACETAM 500 MG (KEPPRA) TAB PO SCH (20:17)
[2020-05-09] MEDS ORDERED: amLODIPine 5 MG (NORVASC) TAB PO ONE (21:30)
[2020-05-09 23:29] VITALS: BP 138/84
[2020-05-10] MEDS: PROMETHAZINE INJ 25 MG/ML (PHENERGAN) AMP IM PRN (01:25)
[2020-05-10 04:34] VITALS: BP 135/78
[2020-05-10] MEDS ORDERED: FUROSEMIDE 40 MG/4 ML INJ (LASIX) IVP ONE (05:00)
[2020-05-10] MEDS: ACETAMINOPHEN 500 MG TAB (TYLENOL) PO SCH ×2 (05:33→11:36)
[2020-05-10] MEDS: LEVOTHYROXINE 75 MCG (LEVOTHROID) TABLET PO SCH (05:33)
[2020-05-10 06:08] LABS: BASOPHILS % (AUTO) 1 % (0-10); EOSINOPHILS # (AUTO) 0.3 10^3/uL (0.0-0.3); EOSINOPHILS % (AUTO) 4 % (0-10); HEMATOCRIT 42 % (35-52); HEMOGLOBIN 14.3 g/dL (11.5-16.0); LYMPHOCYTES # (AUTO) 2.4 10^3/uL (1.0-4.0); LYMPHOCYTES % (AUTO) 31 % (12-44); MEAN CORPUSCULAR HEMOGLOBIN 35 pg (25-34); MEAN CORPUSCULAR HGB CONC 34 g/dL (32-36); MEAN CORPUSCULAR VOLUME 102 fL (80-99); MEAN PLATELET VOLUME 10.5 fL (9.0-12.2); MONOCYTES # (AUTO) 0.5 10^3/uL (0.0-1.0); MONOCYTES % (AUTO) 7 % (0-12); NEUTROPHILS # (AUTO) 4.6 10^3/uL (1.8-7.8); NEUTROPHILS % (AUTO) 58 % (42-75); PLATELET COUNT 268 10^3/uL (130-400); WHITE BLOOD COUNT 7.9 10^3/uL (4.3-11.0)
[2020-05-10 06:18] LABS: CALCIUM 8.8 MG/DL (8.5-10.1); GLUCOSE 128 MG/DL (70-105)
[2020-05-10 06:20] LABS: CARBON DIOXIDE 22 MMOL/L (21-32)
[2020-05-10 06:22] LABS: CREATININE SERUM 0.69 MG/DL (0.60-1.30); GFR ESTIMATED > 60; PHOSPHORUS 3.8 MG/DL (2.3-4.7)
[2020-05-10 06:23] LABS: BUN/CREATININE RATIO 10
[2020-05-10 06:24] LABS: MAGNESIUM 1.9 MG/DL (1.6-2.4)
[2020-05-10 07:04] LABS: CHLORIDE 106 MMOL/L (98-107); POTASSIUM 3.4 MMOL/L (3.6-5.0); SODIUM 140 MMOL/L (135-145)
[2020-05-10 07:40] VITALS: BP 128/86
[2020-05-10] MEDS: LEVETIRACETAM 500 MG (KEPPRA) TAB PO SCH (08:05)
[2020-05-10] MEDS: VENlafaxine XR 75 MG (EFFEXOR XR) CAP PO SCH (08:07)
[2020-05-10] MEDS: PANTOPRAZOLE 40 MG (PROTONIX) TAB PO SCH (08:07)
[2020-05-10] MEDS: amLODIPine 5 MG (NORVASC) TAB PO SCH (08:07)
[2020-05-10] MEDS: LOSARTAN 50 MG (COZAAR) TAB PO SCH (08:07)
[2020-05-10] MEDS: KETOROLAC 30 MG/ML VIAL IVP PRN (08:08)
[2020-05-10] MEDS ORDERED: NICOTINE PATCH REMOVAL TP SCH (08:59)
[2020-05-10] MEDS: NICOTINE 21 MG (NICODERM) PATCH TD SCH (11:36)
[2020-05-10 11:40] VITALS: BP 125/82
[2020-05-10] MEDS ORDERED: HYDR2TAB30 PO (11:54)
[2020-05-10] MEDS ORDERED: LOSA50TA63 PO (11:54)
[2020-05-10] MEDS ORDERED: AMLO5TAB9 PO (11:54)
[2020-05-10] MEDS ORDERED: LEVE500T6 PO (11:54)
--- NOTE | 2020-05-10 11:55 | Discharge Summary ---
Discharge Summary Hospital Course Was the Problem List Reviewed?: Yes Problems/Dx: (1) PRES (posterior reversible encephalopathy syndrome) (2) Seizure (3) Hypertension Status: Acute (4) Headache Status: Acute Hospital Course Date of Admission: May 06, 2020 at 22:52 Admission Diagnosis : Family Physician/Provider: Neo Nguyen MD Date of Discharge: 05/10/20 Discharge Diagnosis: PRES, Seizure, HTN OOC, smoker, Migraines Hospital Course: Hospital Course: Pt had a lengthy hospital course. She was transferred to the ICU for hypertensive urgency with headache and new onset seizure. Pt was monitored closely, transferred down to 4th floor, MRI obtained showing abn ormality, LP really essentially normal and pt was placed on Acyclovir in meantime. 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 Pt BP was much improved, pain was well controlled at time of DC and she will be having a follow up at and with her PCP in one week. Labs and Pending Lab Test: Laboratory Tests 05/10/20 05:22: White Blood Count 7.9, Red Blood Count 4.13, Hemoglobin 14.3, Hematocrit 42, Mean Corpuscular Volume 102H, Mean Corpuscular Hemoglobin 35H, Mean Corpuscular Hemoglobin Concent 34, Red Cell Distribution Width 13.0, Platelet Count 268, Mean Platelet Volume 10.5, Immature Granulocyte % (Auto) 0, Neutrophils (%) (Auto) 58, Lymphocytes (%) (Auto) 31, Monocytes (%) (Auto) 7, Eosinophils (%) (Auto) 4, Basophils (%) (Auto) 1, Neutrophils # (Auto) 4.6, Lymphocytes # (Auto) 2.4, Monocytes # (Auto) 0.5, Eosinophils # (Auto) 0.3, Basophils # (Auto) 0.0, Immature Granulocyte # (Auto) 0.0, Sodium Level 140, Potassium Level 3.4L, Chloride Level 106, Carbon Dioxide Level 22, Anion Gap 12, Blood Urea Nitrogen 7, Creatinine 0.69, Estimat Glomerular Filtration Rate > 60, BUN/Creatinine Ratio 10, Glucose Level 128H, Calcium Level 8.8, Phosphorus Level 3.8, Magnesium Level 1.9 Microbiology 10/20/20 Gram Stain - Final, Complete 05/07/20 CSF Culture - Final, Complete No growth 05/06/20 MRSA Screen - Final, Complete MRSA not isolated Home Meds Active Dilaudid (Hydromorphone HCl) 2 Mg Tablet 2 Mg PO Q6H Levetiracetam 500 Mg Tablet 500 Mg PO BID Losartan Potassium 50 Mg Tablet 100 Mg PO DAILY Amlodipine Besylate 5 Mg Tablet 5 Mg PO DAILY Reported Ibuprofen 200 Mg Tablet 400-600 Mg PO Q8H PRN Tylenol Extra Strength (Acetaminophen) 500 Mg Tablet 1,000 Mg PO Q6H Estradiol 42.5 Gm Cream.appl Gr VG UD PRN Alprazolam 0.5 Mg Tablet 0.5 Mg PO HS PRN Losartan Potassium 50 Mg Tablet 50 Mg PO DAILY Levothyroxine Sodium 75 Mcg Tablet 75 Mcg PO DAILY Venlafaxine HCl ER (Venlafaxine HCl) 75 Mg Cap.er.24h 75 Mg PO DAILY Pantoprazole Sodium 40 Mg Tablet.dr 40 Mg PO DAILY Assessment/Pt Instructions chc 1 week Discharge Planning: <30 minutes discharge planning Discharge Physical Examination Vital Signs Vital Signs Date Time Temp Pulse Resp B/P (MAP) Pulse Ox O2 Delivery O2 Flow Rate FiO2 05/10/20 11:40 37.0 79 16 125/82 (96) 96 Room Air General Appearance: No Apparent Distress, WD/WN, Chronically ill Allergies: Coded Allergies: No Known Drug Allergies (Unverified , 05/06/20) Discharge Summary Date of Admission May 06, 2020 at 22:52 Date of Discharge Discharge Date: May 10, 2020 Admission Diagnosis ICU LP MRI Monitor closely Discharge Diagnosis BP control [facility] referral (1) Hypertension Status: Acute (2) Headache Status: Acute Clinical Quality Measures DVT/VTE Risk/Contraindication: Risk Factor Score Per Nursin RFS Level Per Nursing on Admit: 2=Moderate Other: MRI THIS MORNING 05/07/20 WITH CONTRAST, WILL REASSESS PROPHYLACTIC DVT MEDICATION AT THIS TIME TAYLOR DALE DO May 10, 2020 11:55
--- NOTE | 2020-05-10 12:35 | NUR ---
CM/SS: Pt to discharge to home with follow up appointment with - with Neurology. Pt has the appointment information and has previously seen the Neurologist physician at . Pt indicated on yesterday that she does have a ride home, and that she is currently living with her significant other and her daughter in [place]. She does have a way to get to the follow up appointment.
[2020-05-10 14:00] VITALS: BP 125/82
--- NOTE | 2020-05-10 15:14 | Progress Note ---
RADHA ESPARZA MED STUDENT 05/10/20 1514: Progress Note Celia Joiner is 44 y/o female with hx of migraines and hashimotos who presented to the ER with severe headache onset 05/06. Patient stated she was at home when she coughed and suddenly felt severe pain in her neck and head. She tried using her perscribed Rizatriptan with no effect, prompting her visit. Upon arrival, patient's BP was recorded at 177/94 and she was subsequently given Metoprolol IV and Toradol. Head CT was negative and BP was reassessed at 151/74. As patient was being prepared for discharge, she exhibited seizure activity and was given Ativan. After being stabilized, she was admitted for new onset seizure activity, with Dr. Gabriel consulted for management. While admitted, patient underwent LP (Lyme, chaffeensis, HSV1, HSV2, Spotted fever and tuleremia), CT w/o contrast and tick panel, all of which returned negative. Patient had MRI which showed changes when compared to her last MRI. Changes were discussed with patient's neurologist at who looked at the MRI and felt the changes were consistent with PRES syndrome, likely triggered by her HTN. Patient now feels symptoms are improving, but not resolved. She will be discharged on Keppra for seizure prophylaxis and Dilauded for pain. She will also be perscribed Amlodipine 5mg daily and her Losartan will be increased to 100mg daily to better manage her pressure to prevent further episodes. KATELYNN DALE DO 05/10/20 2131: Supervisory-Addendum Brief Verification & Attestation Participated in pt care: history, MDM, physical Personally performed: exam, history, MDM, supervision of care Care discussed with: Medical Student Procedures: n/a Results interpretation: Verified all documentation Verification and Attestation of Medical Student E/M Service A medical student performed and documented this service in my presence. I reviewed and verified all information documented by the medical student and made modifications to such information, when appropriate. I personally performed the physical exam and medical decision making. Katelynn Dale, May 10, 2020,21:31 RADHA ESPARZA MED STUDENT May 10, 2020 15:14 KATELYNN DALE DO May 10, 2020 21:31
[2020-05-12] MEDS ORDERED: IBUPROFEN TABLET 200 MG TAB PO PRN (02:25)
== END 2020-05-10 14:00 | disposition home or self-care (01) | DRG 72 ==
LOC: EDUNIT# 18:16 → ER FS 18:18 → ICU 22:52 → 4TH 05-08 09:34
PROVIDERS: ADMIT Internal Medicine; ATTEND Internal Medicine
PROC: 009U3ZX Drainage of Spinal Canal, Percutaneous Approach, Diagnostic (ICD-10-PCS; principal; 2020-05-07)
DX: I67.83 Posterior reversible encephalopathy syndrome (principal); R56.9 Unspecified convulsions; G43.909 Migraine, unspecified, not intractable, without status migrainosus; I10 Essential (primary) hypertension; E06.3 Autoimmune thyroiditis; H53.9 Unspecified visual disturbance; F17.210 Nicotine dependence, cigarettes, uncomplicated; Z23 Encounter for immunization
CPT/HCPCS: 36415; 51701; 70450; 70553; 71045; 80048; 80053; 80306; 80320; 81000; 82945; 83615; 83735; 83916; 84100; 84157; 84703; 85025; 86618; 86666; 86668; 86757; 87070; 87081; 87205; 87529; 89051; 90686; 96372; 96374; 96375

== ENCOUNTER 2022-07-21 14:50 | Emergency (ER) | payer BC ==
[~2022-07-21] VITALS: Ht 165 cm; Wt 66.0 kg
[~2022-07-21 14:50] MED LIST: ACET-2267 PO; ALPR0.5T7 PO; AMLO-250 PO; ESTR42.511 VG; HYDR2TAB30 PO; IBUP-2473 PO; LEVE500T6 PO; LEVO75TA6 PO; LOSA50TA63 PO; MAGN296S68 PO; PANT40TA52 PO; RIZA-1 PO; VENL75CA93 PO
[2022-07-21] MEDS ORDERED: KETOROLAC 15 MG/ML VIAL IVP ONE (15:00)
[2022-07-21] MEDS ORDERED: ANTACID SUSP 30 ML UDC (MYLANTA) PO ONE (15:00)
[2022-07-21] MEDS ORDERED: LIDOCAINE 2% VISCOUS 15 ML UDC PO ONE (15:00)
[2022-07-21] MEDS ORDERED: SUCRALFATE 1 GM (CARAFATE) TAB PO ONE (15:00)
--- NOTE | 2022-07-21 15:03 | ED General ---
General Stated Complaint: CHEST PAIN Source of Information: Patient Exam Limitations: No Limitations History of Present Illness Date Seen by Provider: Jul 21, 2022 Time Seen by Provider: 14:50 Initial Comments 47-year-old female presents the emergency department today for what she describes as chest pain. She describes it as starting in her epigastric region radiating up into her chest and down to her left lower abdomen. She worries that it may be from her hiatal hernia. She has had pain like this in the past. Pain is burning sensation, worse with deep inspiration. It has been constant since about 8:00 this morning. No alleviating factors. She denies any fevers or chills. No nausea or vomiting. She states she has had pleurisy in the past that have felt similar to this as well. No recent coughing. No changes in bowel or bladder habits. Constitutional: No fever, fatigue or weight loss. No history of cardiac or pulmonary disease. Allergies and Home Medications Allergies Coded Allergies: No Known Drug Allergies (Unverified , 05/06/20) Patient Home Medication List Home Medication List Reviewed: Yes Acetaminophen (Tylenol Extra Strength) 500 Mg Tablet, 1,000 MG PO Q6H, (Reported) Entered as Reported by: BETI ESPINOZA on 05/07/20 1543 Alprazolam (Alprazolam) 0.5 Mg Tablet, 0.5 MG PO HS PRN for ANNXIETY/SLEEP, (Reported) Entered as Reported by: BETI ESPINOZA on 05/07/20 1543 Amlodipine Besylate (Amlodipine Besylate) 5 Mg Tablet, 5 MG PO DAILY Prescribed by: TAYLOR DALE on 05/10/20 1154 Estradiol (Estradiol) 42.5 Gm Cream.appl, GR VG UD PRN for HORMONE CHANGES, (Reported) Entered as Reported by: BETI ESPINOZA on 05/07/20 1543 Hydromorphone HCl (Dilaudid) 2 Mg Tablet, 2 MG PO Q6H Prescribed by: TAYLOR DALE on 05/10/20 1155 Levetiracetam (Levetiracetam) 500 Mg Tablet, 500 MG PO BID Prescribed by: TAYLOR DALE on 05/10/20 1154 Levothyroxine Sodium (Levothyroxine Sodium) 75 Mcg Tablet, 75 MCG PO DAILY, (Reported) Entered as Reported by: BETI ESPINOZA on 05/07/20 1543 Losartan Potassium (Losartan Potassium) 50 Mg Tablet, 100 MG PO DAILY Prescribed by: TAYLOR DALE on 05/10/20 1154 Pantoprazole Sodium (Pantoprazole Sodium) 40 Mg Tablet.dr, 40 MG PO DAILY, (Reported) Entered as Reported by: BETI ESPINOZA on 05/07/20 1543 Venlafaxine HCl (Venlafaxine HCl ER) 75 Mg Cap.er.24h, 75 MG PO DAILY, (Reported) Entered as Reported by: BETI ESPINOZA on 05/07/20 1543 Review of Systems Review of Systems Constitutional: no symptoms reported EENTM: no symptoms reported Respiratory: no symptoms reported Cardiovascular: chest pain Gastrointestinal: abdominal pain Genitourinary: no symptoms reported Musculoskeletal: no symptoms reported Skin: no symptoms reported Psychiatric/Neurological: No Symptoms Reported Hematologic/Lymphatic: No Symptoms Reported Immunological/Allergic: no symptoms reported Past Mxfjcjw-Fskvrm-Abdear Hx Patient Social History Tobacco Use?: Yes Use of E-Cig and/or Vaping dev: No Substance use?: No Alcohol Use?: No Past Medical History Surgery/Hospitalization HX: Seizure disorder, depression and anxiety, hypertension Hypertension Headaches /Migraines Diverticulosis Hypothyroidsim Family Medical History Reviewed Nursing Family Hx No Pertinent Family Hx Physical Exam Vital Signs Vital Signs - First Documented 07/21/22 15:20 Pulse 129 Resp 22 B/P (MAP) 123/87 (99) Pulse Ox 95 O2 Delivery Room Air Capillary Refill : Height, Weight, BMI Height: '" Weight: lbs. oz. kg; 29.00 BMI Method: General Appearance: No Apparent Distress HEENT: Normal ENT Inspection, Pharynx Normal Neck: Full Range of Motion, Non Tender, Supple Respiratory: Lungs Clear, Normal Breath Sounds, No Accessory Muscle Use, No Respiratory Distress, Other (Anterior chest wall is exquisitely tender even with light palpation. No crepitus or deformity. No skin changes.) Cardiovascular: Regular Rate, Rhythm, No Edema, No Gallop, No JVD, No Murmur, Normal Peripheral Pulses Gastrointestinal: Normal Bowel Sounds, Soft, Tenderness (Epigastric tenderness. Voluntary guarding. No rebound tenderness.) Back: Normal Inspection, No CVA Tenderness Neurologic/Psychiatric: Alert, Oriented x3, No Motor/Sensory Deficits Skin: Normal Color, Warm/Dry Lymphatic: No Adenopathy Progress/Results/Core Measures Suspected Sepsis SIRS Temperature: Pulse: Respiratory Rate: Laboratory Tests 07/21/22 14:58: White Blood Count 19.0H Blood Pressure / Mean: Laboratory Tests 07/21/22 14:58: Creatinine 0.57L, Platelet Count 233, Total Bilirubin 1.2H Results/Orders Lab Results Laboratory Tests Test 07/21/22 14:58 Range/Units White Blood Count 19.0 H 4.3-11.0 10^3/uL Red Blood Count 4.43 3.80-5.11 10^6/uL Hemoglobin 15.9 11.5-16.0 g/dL Hematocrit 45 35-52 % Mean Corpuscular Volume 102 H 80-99 fL Mean Corpuscular Hemoglobin 36 H 25-34 pg Mean Corpuscular Hemoglobin Concent 35 32-36 g/dL Red Cell Distribution Width 12.1 10.0-14.5 % Platelet Count 233 130-400 10^3/uL Mean Platelet Volume 10.1 9.0-12.2 fL Neutrophils (%) (Auto) 88 H 42-75 % Lymphocytes (%) (Auto) 7 L 12-44 % Monocytes (%) (Auto) 6 0-12 % Eosinophils (%) (Auto) 0 0-10 % Basophils (%) (Auto) 0 0-10 % Neutrophils # (Auto) 16.6 H 1.8-7.8 X 10^3 Lymphocytes # (Auto) 1.2 1.0-4.0 X 10^3 Monocytes # (Auto) 1.1 H 0.0-1.0 X 10^3 Eosinophils # (Auto) 0.0 0.0-0.3 10^3/uL Basophils # (Auto) 0.0 0.0-0.1 10^3/uL Sodium Level 136 135-145 MMOL/L Potassium Level 3.8 3.6-5.0 MMOL/L Chloride Level 97 L 98-107 MMOL/L Carbon Dioxide Level 20 L 21-32 MMOL/L Anion Gap 19 H 5-14 MMOL/L Blood Urea Nitrogen 5 L 7-18 MG/DL Creatinine 0.57 L 0.60-1.30 MG/DL Estimat Glomerular Filtration Rate 111 BUN/Creatinine Ratio 9 Glucose Level 134 H 70-105 MG/DL Calcium Level 9.5 8.5-10.1 MG/DL Corrected Calcium 9.1 8.5-10.1 MG/DL Total Bilirubin 1.2 H 0.1-1.0 MG/DL Aspartate Amino Transf (AST/SGOT) 56 H 5-34 U/L Alanine Aminotransferase (ALT/SGPT) 44 0-55 U/L Alkaline Phosphatase 104 40-136 U/L Troponin I < 0.30 <0.30 NG/ML Total Protein 7.4 6.4-8.2 GM/DL Albumin 4.5 3.2-4.5 GM/DL Lipase 23 8-78 U/L My Orders Orders - RANJAN MALONE DO Cbc With Automated Diff (07/21/22 14:58) Chest 1 View Ap/Pa Only (07/21/22 14:58) Comprehensive Metabolic Panel (07/21/22 14:58) Ed Iv/Invasive Line Start (07/21/22 14:58) Troponin I Fs (07/21/22 14:58) Ketorolac Injection (Toradol Injection) (07/21/22 15:00) Sucralfate Tablet (Carafate Tablet) (07/21/22 15:00) Antacid Suspension (Mylanta Suspension (07/21/22 15:00) Lidocaine 2% Viscous 15 Ml (Xylocaine Vi (07/21/22 15:00) Lipase (07/21/22 15:03) Ekg Tracing (07/21/22 15:11) Manual Differential (07/21/22 14:58) Medications Given in ED Current Medications Medications Dose Ordered Sig/Meghana Route Start Time Stop Time Status Last Admin Dose Admin Al Hydrox/Mg Hydrox/Simethicone 30 ml ONCE ONCE PO 07/21/22 15:00 07/21/22 15:01 DC 07/21/22 15:05 30 ML Ketorolac Tromethamine 15 mg ONCE ONCE IVP 07/21/22 15:00 07/21/22 15:01 DC 07/21/22 15:06 15 MG Lidocaine HCl 5 ml ONCE ONCE PO 07/21/22 15:00 07/21/22 15:01 DC 07/21/22 15:05 5 ML Sucralfate 1 gm ONCE ONCE PO 07/21/22 15:00 07/21/22 15:01 DC 07/21/22 15:06 1 GM Vital Signs/I&O 07/21/22 15:20 Pulse 129 Resp 22 B/P (MAP) 123/87 (99) Pulse Ox 95 O2 Delivery Room Air Capillary Refill : ECG Comment Sinus tachycardia with a rate of 130 bpm. Normal intervals. Normal axis. No ST or T wave abnormalities. No ectopy. Departure Communication (Admissions) Patient is hemodynamically stable. She is quite anxious upon arrival which is what I think is causing most of her tachycardia. She has no stigmata of pulmonary embolus notably this is very low risk at this time. No history of ACS, coronary artery disease or pulmonary disease. EKG is nonischemic and troponin is negative. Chest x-ray is negative for any pneumothorax, pneumonia or other acute findings. Symptoms are most consistent with chest wall, musculoskeletal pain and pleurisy. She is exquisitely tender to palpation her chest wall. She states the pain medications and GI cocktail have certainly helped her symptoms and "took the edge off." She is comfortable agreeable to discharge home at this time with close follow-up. Questions were sought and answered. Impression Primary Impression: Chest wall pain Disposition: 01 HOME, SELF-CARE Condition: Stable Departure-Patient Inst. Referrals: CASTILLO POWER MD (PCP/Family) Primary Care Physician Patient Instructions: Chest Pain That Is Not Caused by the Heart (DC) Add. Discharge Instructions: Please alternate Motrin and Tylenol as needed for pains. You may want to take a hot shower which may help as well. Follow-up with your primary doctor should your symptoms persist. Return to the emergency department for any severe concerns RANJAN MALONE DO Jul 21, 2022 15:03
[2022-07-21 15:17] LABS: HEMATOCRIT 45 % (35-52); HEMOGLOBIN 15.9 g/dL (11.5-16.0); MEAN CORPUSCULAR HEMOGLOBIN 36 pg (25-34); MEAN CORPUSCULAR HGB CONC 35 g/dL (32-36); MEAN CORPUSCULAR VOLUME 102 fL (80-99)
[2022-07-21 15:18] LABS: BASOPHILS % (AUTO) 0 % (0-10); EOSINOPHILS % (AUTO) 0 % (0-10); LYMPHOCYTES % (AUTO) 7 % (12-44); MEAN PLATELET VOLUME 10.1 fL (9.0-12.2); MONOCYTES % (AUTO) 6 % (0-12); NEUTROPHILS # (AUTO) 16.6 X 10^3 (1.8-7.8); NEUTROPHILS % (AUTO) 88 % (42-75); PLATELET COUNT 233 10^3/uL (130-400)
[2022-07-21 15:19] LABS: LYMPHOCYTES # (AUTO) 1.2 X 10^3 (1.0-4.0); MONOCYTES # (AUTO) 1.1 X 10^3 (0.0-1.0)
[2022-07-21 15:20] VITALS: BP 123/87
[2022-07-21 15:33] LABS: ALBUMIN 4.5 GM/DL (3.2-4.5); BILIRUBIN,TOTAL 1.2 MG/DL (0.1-1.0); CALCIUM 9.5 MG/DL (8.5-10.1); CREATININE SERUM 0.57 MG/DL (0.60-1.30); POTASSIUM 3.8 MMOL/L (3.6-5.0); TOTAL PROTEIN 7.4 GM/DL (6.4-8.2)
[2022-07-21 15:34] LABS: LIPASE 23 U/L (8-78)
[2022-07-21 15:48] LABS: BAND NEUTROPHILS 6 %; BASOPHILS % (MANUAL) 0 %; EOSINOPHILS % (MANUAL) 0 %; LYMPHOCYTES % (MANUAL) 1 %; MONOCYTES % (MANUAL) 5 %; NEUTROPHILS % (MANUAL) 88 %
--- NOTE | 2022-07-21 16:26 | Diagnostic Imaging Report ---
INDICATION: Chest pain Frontal chest obtained at 03:09 p.m. and compared to 05/08/2020. Heart and mediastinal silhouette are normal in appearance. The lungs are clear. There is no pneumothorax or pleural fluid. IMPRESSION: Negative chest. Dictated by: Dictated on workstation # [id number]
== END 2022-07-21 15:56 | disposition home or self-care (01) ==
LOC: EDUNIT# 14:50 → ER FS 14:50
DX: R07.89 Other chest pain (principal)
CPT/HCPCS: 36415; 71045; 80053; 83690; 84484; 85007; 85027; 93005